=== PATIENT | male | born 1980 | race Hispanic/Latino ===

== ENCOUNTER 2019-10-20 09:26 | Emergency (ER) | payer OTHER, SELFPAY ==
[2019-10-20 10:30] LABS: Basophils % 0.5 % (0-1.3); Hematocrit 43.2 % (39.6-49.0); Lymphocytes % 29.1 % (15.3-44.8); MPV 8.9 fL (7.6-11.3); RBC Red Blood Cell Count 4.94 M/uL (4.33-5.43)
[2019-10-20 10:41] LABS: BUN Blood Urea Nitrogen 8 mg/dL (7-18); Bicarbonate 29 mmol/L (21-32); Glucose Level 96 mg/dL (74-106); Potassium 4.2 mmol/L (3.5-5.1); Sodium Level 140 mmol/L (136-145)
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
[2019-10-20 12:50] VITALS: TEMP 98.8; O2SAT 100
[2019-10-20 12:53] VITALS: BP 125/87
== END 2019-10-20 12:01 | disposition home or self-care (01) ==
LOC: ER 09:26
DX: M62.830 Muscle spasm of back (principal); V59.40XA Driver of pick-up truck or van injured in collision with unspecified motor vehicles in traffic accident, initial encounter
CPT/HCPCS: 36415; 70450; 71260; 72125; 74177; 80048; 85025; 86850; 86900; 86901; Q9967